=== PATIENT | female | born 1990 | race Two or more races ===

== ENCOUNTER 2017-08-03 14:19 | Emergency (ER) | payer SELFPAY ==
--- NOTE | 2017-08-03 15:18 | EDM.PDOC ---
ED HPI GENERAL MEDICAL PROBLEM - General Chief Complaint: Back Pain or Injury Stated Complaint: BACK PAIN() Time Seen by Provider: 08/03/17 15:00 Source of Information: Reports: Patient History Limitations: Reports: No Limitations - History of Present Illness INITIAL COMMENTS - FREE TEXT/NARRATIVE: HISTORY AND PHYSICAL: History of present illness: Patient is a 26-year-old female who presents to the emergency room today with complaints of low back pain. She states she has not had a menstrual period approximately 3 months and believe she is 3 months . She denies any recent injury or trauma or falls. This back pain stays above the posterior iliac crest and does not radiate down either glutes or to the front of the abdomen. Patient has not received any care or primary health care as of recent. She does complain of nausea but states this is related to symptoms. Eating and drinking appropriately. Her father is at the bedside to translate, they declined Chastity services at this time. Denies any vaginal bleeding, cramping, discharge or dysuria. Denies any change in her urinary or bowel habits.Denies any abdominal pain, vomiting or diarrhea. Denies any fever, chills, chest pain or shortness of breath. Patient is fully ambulatory and has full range of motion without any pain or difficulty. She does not take any prescribed or [id number] medications. Denies any drug or alcohol abuse. 1 para 0- vaginal delivery without complications Review of systems: As per history of present illness and below otherwise all systems reviewed and negative. Past medical history: As per history of present illness and as reviewed below otherwise noncontributory. Surgical history: As per history of present illness and as reviewed below otherwise noncontributory. Social history: No reported history of drug or alcohol abuse. Family history: As per history of present illness and as reviewed below otherwise noncontributory. Physical exam: Gen.: Developed and well-nourished 26-year-old female. Alert and oriented. Appears nontoxic and in no acute distress. HEENT: Atraumatic, normocephalic, pupils reactive, negative for conjunctival pallor or scleral icterus, mucous membranes moist, throat clear, neck supple, nontender, trachea midline. Lungs: Clear to auscultation, breath sounds equal bilaterally, chest nontender. Heart: S1S2, regular ate and rhythm without any overt murmurs Abdomen: Soft, nondistended, nontender. Negative for masses or hepatosplenomegaly. Negative for costovertebral tenderness. Pelvis: Stable nontender. Genitourinary: Deferred. Rectal: Deferred. Extremities: Atraumatic, negative for cords or calf pain. Neurovascular unremarkable. Neuro: Awake, alert, oriented. Cranial nerves II through XII unremarkable. Cerebellum unremarkable. Motor and sensory unremarkable throughout. Exam nonfocal. Diagnostics: CBC, BMP, UA, quantitative hCG Therapeutics: [] Impression: Second trimester Back pain and Plan: 1. Please start taking a vitamin once daily. 2. Establish care with an [facility] for continued care. The phone number has been provided for you. 3. Tylenol is safe to take while . You may take this for your back pain. Apply gentle heat to the area. 4. Return to the ED as needed and as discussed. Definitive disposition and diagnosis as appropriate pending reevaluation and review of above. Duration: Week(s): Location: Reports: Back Bilateral Lower Back Pain Score (Numeric/FACES): 5 - Related Data Allergies Allergy/AdvReac Type Severity Reaction Status Date / Time No Known Allergies Allergy Verified 08/03/17 14:51 Home Meds: Home Meds . [No Known Home Meds] 08/03/17 [History] ED ROS GENERAL - Review of Systems Review Of Systems: ROS reveals no pertinent complaints other than HPI. ED EXAM,LOWER BACK PAIN/INJURY - Physical Exam Exam: See Below (See dictation) Course - Vital Signs Last Recorded V/S: Last Vital Signs Temp 98.5 F 08/03/17 14:51 Pulse 110 H 08/03/17 14:51 Resp 16 08/03/17 14:51 BP 124/82 08/03/17 14:51 Pulse Ox 100 08/03/17 14:51 - Orders/Labs/Meds Labs: Laboratory Tests 08/03/17 08/03/17 08/03/17 Range/Units 15:11 15:19 15:19 WBC 9.92 (4.0-11.0) K/uL RBC 4.00 L (4.30-5.90) M/uL Hgb 12.7 (12.0-16.0) g/dL Hct 36.9 (36.0-46.0) % MCV 92.3 (80.0-98.0) fL MCH 31.8 (27.0-32.0) pg MCHC 34.4 (31.0-37.0) g/dL RDW Std Deviation 44.0 (28.0-62.0) fl RDW Coeff of Omkar 13 (11.0-15.0) % Plt Count 329 (150-400) K/uL MPV 10.20 (7.40-12.00) fL Add Manual Diff YES Neutrophils % (Manual) 54 (48.0-80.0) % Band Neutrophils % 2 % Lymphocytes % (Manual) 33 (16.0-40.0) % Monocytes % (Manual) 10 (0.0-15.0) % Eosinophils % (Manual) 1 (0.0-7.0) % Nucleated RBC % 0.0 /100WBC Absolute Seg Neuts 5.4 (1.4-5.7) Band Neutrophils # 0.2 Lymphocytes # (Manual) 3.3 H (0.6-2.4) Monocytes # (Manual) 1.0 H (0.0-0.8) Eosinophils # (Manual) 0.1 (0.0-0.7) Nucleated RBCs # 0 K/uL Sodium 139 (136-146) mmol/L Potassium 3.7 (3.5-5.1) mmol/L Chloride 108 (98-110) mmol/L Carbon Dioxide 21 (21-31) mmol/L BUN 7 (6.0-23.0) mg/dL Creatinine 0.6 (0.6-1.5) mg/dL Est Cr Clr Drug Dosing 101.34 mL/min Estimated GFR (MDRD) > 60.0 ml/min Glucose 73 (60-110) mg/dL Calcium 9.2 (8.8-10.8) mg/dL HCG, Quant 30909.1 mIU/mL Urine Color YELLOW Urine Appearance CLEAR Urine pH 7.5 (5.0-8.0) Ur Specific [place] 1.015 (1.001-1.035) Urine Protein NEGATIVE (NEGATIVE) mg/dL Urine Glucose (UA) NEGATIVE (NEGATIVE) mg/dL Urine Ketones NEGATIVE (NEGATIVE) mg/dL Urine Occult Blood NEGATIVE (NEGATIVE) Urine Nitrite NEGATIVE (NEGATIVE) Urine Bilirubin NEGATIVE (NEGATIVE) Urine Urobilinogen 0.2 (<2.0) EU/dL Ur Leukocyte Esterase TRACE (NEGATIVE) Urine RBC 0-1 (0-2/HPF) Urine WBC 0-2 (0-5/HPF) Ur Epithelial Cells FEW (NONE-FEW) Urine Bacteria FEW (NEGATIVE) Departure - Departure Time of Disposition: 16:43 Disposition: Home, Self-Care 01 Clinical Impression: Second trimester , Back pain affecting in second trimester - Discharge Information Referrals: PCP,None [Primary Care Provider] - Forms: ED Department Discharge Additional Instructions: My general discharge The following information is given to patients seen in the emergency department who are being discharged to home. This information is to outline your options for follow-up care. We provide all patients seen in our emergency department with a follow-up referral. The need for follow-up, as well as the timing and circumstances, are variable depending upon the specifics of your emergency department visit. If you don't have a primary care physician on staff, we will provide you with a referral. We always advise you to contact your personal physician following an emergency department visit to inform them of the circumstance of the visit and for follow-up with them and/or the need for any referrals to a consulting specialist. The emergency department will also refer you to a specialist when appropriate. This referral assures that you have the opportunity for follow-up care with a specialist. All of these measure are taken in an effort to provide you with optimal care, which includes your follow-up. Under all circumstances we always encourage you to contact your private physician who remains a resource for coordinating your care. When calling for follow-up care, please make the office aware that this follow-up is from your recent emergency room visit. If for any reason you are refused follow-up, please contact the [facility] Emergency Department at and asked to speak to the emergency department charge nurse. [facility] [address] [place] [address] [facility]: [facility] [place] [address] [place] [address] 1. Please start taking a multivitamin daily. 2. Tylenol is the only medication that is safe with . You may take this for your back pain. Gentle heat and warm baths may also be beneficial. 3. Please establish care with an [facility] for a full examination. You'll need to establish care for future OB appointments to ensure that your baby is developing and growing appropriately. 4. Follow-up with your primary care doctor or [facility] in the next 1-2 days. Return to the ED as needed and as discussed.
[2017-08-03 15:59] LABS: CHLORIDE,CL 108 mmol/L (98-110); SODIUM,NA 139 mmol/L (136-146)
== END 2017-08-03 17:10 | disposition home or self-care (01) ==
LOC: MW.ED 14:19
DX: O26.892 Other specified pregnancy related conditions, second trimester (principal); M54.5 Low back pain; Z3A.12 12 weeks gestation of pregnancy
CPT/HCPCS: 36415; 80048; 81001; 84702; 85025; 99283

== ENCOUNTER 2017-08-18 17:09 | Emergency (ER) | payer SELFPAY ==
--- NOTE | 2017-08-18 18:24 | EDM.PDOC ---
ED HPI GENERAL MEDICAL PROBLEM - General Chief Complaint: Headache Stated Complaint: ABDOMINAL PAIN Time Seen by Provider: 08/18/17 18:22 Source of Information: Reports: Patient History Limitations: Reports: No Limitations - History of Present Illness INITIAL COMMENTS - FREE TEXT/NARRATIVE: History of present illness: [Patient facilitated by the assistance of intraoperative device. Patient is a 26 -year-old female that comes in complaining of abdominal pain. Patient indicates use 3 months and her abdomen has been having cramping gotten progressively worse over the last 3 days she might be evaluated.] Review of systems: As per history of present illness and below otherwise all systems reviewed and negative. Past medical history: As per history of present illness and as reviewed below otherwise noncontributory. Surgical history: As per history of present illness and as reviewed below otherwise noncontributory. Social history: No reported history of drug or alcohol abuse. Family history: As per history of present illness and as reviewed below otherwise noncontributory. Physical exam: HEENT: Atraumatic, normocephalic, pupils reactive, negative for conjunctival pallor or scleral icterus, mucous membranes moist, throat clear, neck supple, nontender, trachea midline. Lungs: Clear to auscultation, breath sounds equal bilaterally, chest nontender. Heart: S1S2, regular, negative for clicks, rubs, or JVD. Abdomen: Soft, nondistended, nontender. Negative for masses or hepatosplenomegaly. Negative for costovertebral tenderness. Pelvis: Stable nontender. Genitourinary: Deferred. Rectal: Deferred. Extremities: Atraumatic, negative for cords or calf pain. Neurovascular unremarkable. Neuro: Awake, alert, oriented. Cranial nerves II through XII unremarkable. Cerebellum unremarkable. Motor and sensory unremarkable throughout. Exam nonfocal. Interuterine of approximately 18 weeks 5 days without signs of bleeding or complications. Diagnostics: [Rh, UA, serum quantitative, transvaginal ultrasound] Therapeutics: [] Impression: [#1 live interuterine ] Plan: [Follow-up with an NEWS ANALYST] Definitive disposition and diagnosis as appropriate pending reevaluation and review of above. Abdomen Pain Score (Numeric/FACES): 5 - Related Data Allergies Allergy/AdvReac Type Severity Reaction Status Date / Time No Known Allergies Allergy Verified 08/18/17 17:26 Home Meds: Home Meds . 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: Social & Family History - Family History Family Medical History: Noncontributory - Tobacco Use Smoking Status *Q: Never Smoker Second Hand Smoke Exposure: No - Caffeine Use Caffeine Use: Reports: None - Recreational Drug Use Recreational Drug Use: No ED ROS GENERAL - Review of Systems Review Of Systems: See Below (See history of present illness) ED EXAM, GENERAL - Physical Exam Exam: See Below (See history of present illness) Course - Vital Signs Last Recorded V/S: Last Vital Signs Temp 37.0 C 08/18/17 17:27 Pulse 83 08/18/17 17:27 Resp 14 08/18/17 17:27 BP 119/70 08/18/17 17:27 Pulse Ox 99 08/18/17 17:27 - Orders/Labs/Meds Orders: Active Orders 24 hr Category Date Time Status OB 2 Or 3 Tri Sgl 1st Gest [US] Stat Exams 08/18/17 18:14 Taken CULTURE URINE [] Stat Lab 08/18/17 18:35 Received Labs: Laboratory Tests 08/18/17 08/18/17 08/18/17 Range/Units 18:14 18:14 18:28 WBC 9.51 (4.0-11.0) K/uL RBC 3.87 L (4.30-5.90) M/uL Hgb 12.4 (12.0-16.0) g/dL Hct 35.7 L (36.0-46.0) % MCV 92.2 (80.0-98.0) fL MCH 32.0 (27.0-32.0) pg MCHC 34.7 (31.0-37.0) g/dL RDW Std Deviation 44.3 (28.0-62.0) fl RDW Coeff of Omkar 13 (11.0-15.0) % Plt Count 275 (150-400) K/uL MPV 10.30 (7.40-12.00) fL Neut % (Auto) 64.1 (48.0-80.0) % Lymph % (Auto) 28.1 (16.0-40.0) % [place] % (Auto) 6.6 (0.0-15.0) % Eos % (Auto) 1.1 (0.0-7.0) % Baso % (Auto) 0.1 (0.0-1.5) % Neut # (Auto) 6.1 H (1.4-5.7) K/uL Lymph # (Auto) 2.7 H (0.6-2.4) K/uL [place] # (Auto) 0.6 (0.0-0.8) K/uL Eos # (Auto) 0.1 (0.0-0.7) K/uL Baso # (Auto) 0.0 (0.0-0.1) K/uL Nucleated RBC % 0.0 /100WBC Nucleated RBCs # 0 K/uL HCG, Quant 91227.1 mIU/mL Urine Color Urine Appearance Urine pH (5.0-8.0) Ur Specific [place] (1.001-1.035) Urine Protein (NEGATIVE) mg/dL Urine Glucose (UA) (NEGATIVE) mg/dL Urine Ketones (NEGATIVE) mg/dL Urine Occult Blood (NEGATIVE) Urine Nitrite (NEGATIVE) Urine Bilirubin (NEGATIVE) Urine Urobilinogen (<2.0) EU/dL Ur Leukocyte Esterase (NEGATIVE) Urine RBC (0-2/HPF) Urine WBC (0-5/HPF) Ur Epithelial Cells (NONE-FEW) Urine Bacteria (NEGATIVE) Blood Type O POSITIVE 08/18/17 Range/Units 18:35 WBC (4.0-11.0) K/uL RBC (4.30-5.90) M/uL Hgb (12.0-16.0) g/dL Hct (36.0-46.0) % MCV (80.0-98.0) fL MCH (27.0-32.0) pg MCHC (31.0-37.0) g/dL RDW Std Deviation (28.0-62.0) fl RDW Coeff of Omkar (11.0-15.0) % Plt Count (150-400) K/uL MPV (7.40-12.00) fL Neut % (Auto) (48.0-80.0) % Lymph % (Auto) (16.0-40.0) % [place] % (Auto) (0.0-15.0) % Eos % (Auto) (0.0-7.0) % Baso % (Auto) (0.0-1.5) % Neut # (Auto) (1.4-5.7) K/uL Lymph # (Auto) (0.6-2.4) K/uL [place] # (Auto) (0.0-0.8) K/uL Eos # (Auto) (0.0-0.7) K/uL Baso # (Auto) (0.0-0.1) K/uL Nucleated RBC % /100WBC Nucleated RBCs # K/uL HCG, Quant mIU/mL Urine Color YELLOW Urine Appearance CLEAR Urine pH 7.0 (5.0-8.0) Ur Specific [place] 1.010 (1.001-1.035) Urine Protein NEGATIVE (NEGATIVE) mg/dL Urine Glucose (UA) NEGATIVE (NEGATIVE) mg/dL Urine Ketones NEGATIVE (NEGATIVE) mg/dL Urine Occult Blood NEGATIVE (NEGATIVE) Urine Nitrite NEGATIVE (NEGATIVE) Urine Bilirubin NEGATIVE (NEGATIVE) Urine Urobilinogen 0.2 (<2.0) EU/dL Ur Leukocyte Esterase NEGATIVE (NEGATIVE) Urine RBC 0-1 (0-2/HPF) Urine WBC 0-1 (0-5/HPF) Ur Epithelial Cells OCCASIONAL (NONE-FEW) Urine Bacteria FEW (NEGATIVE) Blood Type Departure - Departure Time of Disposition: 20:04 Disposition: Home, Self-Care 01 Condition: Good Clinical Impression: Second trimester - Discharge Information Referrals: PCP,None [Primary Care Provider] - Forms: ED Department Discharge Additional Instructions: The following information is given to patients seen in the emergency department who are being discharged to home. This information is to outline your options for follow-up care. We provide all patients seen in our emergency department with a follow-up referral. The need for follow-up, as well as the timing and circumstances, are variable depending upon the specifics of your emergency department visit. If you don't have a primary care physician on staff, we will provide you with a referral. We always advise you to contact your personal physician following an emergency department visit to inform them of the circumstance of the visit and for follow-up with them and/or the need for any referrals to a consulting specialist. The emergency department will also refer you to a specialist when appropriate. This referral assures that you have the opportunity for follow-up care with a specialist. All of these measure are taken in an effort to provide you with optimal care, which includes your follow-up. Under all circumstances we always encourage you to contact your private physician who remains a resource for coordinating your care. When calling for follow-up care, please make the office aware that this follow-up is from your recent emergency room visit. If for any reason you are refused follow-up, please contact the [facility] Emergency Department at and asked to speak to the emergency department charge nurse. You are approximately 19 weeks please follow-up with an NEWS ANALYST return to ER in case of any emergencies or concerns as discussed - My Orders Last 24 Hours: My Active Orders 08/18/17 18:14 OB 2 Or 3 Tri Sgl 1st Gest [US] Stat 08/18/17 18:35 CULTURE URINE [RM] Stat - Assessment/Plan Last 24 Hours: My Active Orders 08/18/17 18:14 OB 2 Or 3 Tri Sgl 1st Gest [US] Stat 08/18/17 18:35 CULTURE URINE [RM] Stat
--- NOTE | 2017-08-21 18:41 | US ---
EXAM DATE: 08/18/17 PATIENT'S AGE: 26 Patient: JOSIAH VALENCIA Facility: [place], [place] Site . Site : 1990 Study: US OB Pelvis [id number]/18/2017 7:53:34 PM Ordering Physician: Doctor Mcelroy Final Report: HISTORY: Right-sided abdominal pain in . Technique: Obstetric ultrasound using transabdominal technique. Comparison: None. Findings: Study was performed for management in the emergency setting. A dedicated anatomic screening exam was not performed. Single live intrauterine gestation. cardiac activity is present with heart rate 149 beats per minute. Transverse lie with the occiput to the left. Placenta is anterior. No placenta previa or abruption. Amniotic fluid volume appears within normal limits. Following biometric measurements were obtained: Head circumference: 15.8 cm, 18 weeks 5 days. Abdominal circumference: 12.8 cm, 18 weeks 3 days. Femur length: 2.8 cm, 18 weeks 5 days. Composite estimated gestational age by ultrasound is 18 weeks 5 days. Impression : 1. Single live intrauterine gestation with estimated gestational age 18 weeks 5 days. 2. Recommend followup ultrasound for dedicated anatomic survey. Dictated by Kelby Ceja MD @ Aug 18 2017 8:23PM (Electronic Signature) Report Signed by Proxy. TYRESE
== END 2017-08-18 20:57 | disposition home or self-care (01) ==
LOC: MW.ED 17:09
DX: O99.89 Other specified diseases and conditions complicating pregnancy, childbirth and the puerperium (principal); R10.9 Unspecified abdominal pain; Z3A.18 18 weeks gestation of pregnancy
CPT/HCPCS: 36415; 76805; 76805-26; 81001; 84702; 85025; 86900; 86901; 87086; 99283; 99284-25

== ENCOUNTER 2017-11-19 15:35 | Emergency (ER) | payer OTHER, SELFPAY ==
--- NOTE | 2017-11-19 16:32 | EDM.PDOC ---
ED HPI GENERAL MEDICAL PROBLEM - General Chief Complaint: Headache Stated Complaint: HEADACHE,AND SORETHROAT() Time Seen by Provider: 11/19/17 16:05 Source of Information: Reports: Patient History Limitations: Reports: No Limitations - History of Present Illness INITIAL COMMENTS - FREE TEXT/NARRATIVE: History of present illness: []Patient is and has not had any care and comes in complaining of a sore throat and headache. Review of systems: As per history of present illness and below otherwise all systems reviewed and negative. Past medical history: As per history of present illness and as reviewed below otherwise noncontributory. Surgical history: As per history of present illness and as reviewed below otherwise noncontributory. Social history: No reported history of drug or alcohol abuse. Family history: As per history of present illness and as reviewed below otherwise noncontributory. Physical exam: General: Well developed, well nourished in NAD HEENT: Atraumatic, normocephalic, pupils reactive, negative for conjunctival pallor or scleral icterus, mucous membranes moist, throat erythematous no exudate, neck supple, nontender, trachea midline. Lungs: Clear to auscultation, breath sounds equal bilaterally, chest nontender. Heart: S1S2, regular, negative for clicks, rubs, or JVD. Abdomen: Soft, heart tones 154-160 nontender. Negative for masses or hepatosplenomegaly. Negative for costovertebral tenderness. Pelvis: Stable nontender. Genitourinary: Deferred. Rectal: Deferred. Extremities: Atraumatic, negative for cords or calf pain. Neurovascular unremarkable. Neuro: Awake, alert, oriented. Cranial nerves II through XII unremarkable. Cerebellum unremarkable. Motor and sensory unremarkable throughout. Exam nonfocal. Diagnostics: []Rapid strep is negative Therapeutics: []Tylenol given Impression: []Viral pharyngitis, Plan: []Follow-up with women's health clinic for throat pain Definitive disposition and diagnosis as appropriate pending reevaluation and review of above. 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: Social & Family History - Family History Family Medical History: Noncontributory - Tobacco Use Smoking Status *Q: Never Smoker Second Hand Smoke Exposure: No - Caffeine Use Caffeine Use: Reports: None - Recreational Drug Use Recreational Drug Use: No ED ROS GENERAL - Review of Systems Review Of Systems: See Below (See history of present illness) ED EXAM - Physical Exam Exam: See Below (See history of present illness) Course - Vital Signs Last Recorded V/S: Last Vital Signs Temp 97.7 F 11/19/17 15:54 Pulse 129 H 11/19/17 15:54 Resp 16 11/19/17 15:54 BP 120/75 11/19/17 15:54 Pulse Ox 98 11/19/17 15:54 - Orders/Labs/Meds Orders: Active Orders 24 hr Category Date Time Status CULTURE STREP A CONFIRMATION [RM] Stat Lab 11/19/17 16:40 Results STREP SCRN A RAPID W CULT CONF [RM] Stat Lab 11/19/17 16:40 Ordered UA W/MICROSCOPIC [URIN] Stat Lab 11/19/17 17:35 Ordered Labs: Laboratory Tests 11/19/17 Range/Units 17:35 Urine Color YELLOW Urine Appearance CLEAR Urine pH 6.0 (5.0-8.0) Ur Specific [place] <= 1.005 (1.001-1.035) Urine Protein NEGATIVE (NEGATIVE) mg/dL Urine Glucose (UA) NEGATIVE (NEGATIVE) mg/dL Urine Ketones TRACE H (NEGATIVE) mg/dL Urine Occult Blood NEGATIVE (NEGATIVE) Urine Nitrite NEGATIVE (NEGATIVE) Urine Bilirubin NEGATIVE (NEGATIVE) Urine Urobilinogen 0.2 (<2.0) EU/dL Ur Leukocyte Esterase NEGATIVE (NEGATIVE) Urine RBC 0-1 (0-2/HPF) Urine WBC 0-1 (0-5/HPF) Ur Epithelial Cells FEW (NONE-FEW) Urine Bacteria RARE (NEGATIVE) Meds: Medications Discontinued Medications Generic Name Dose Route Start Last Admin Trade Name Freq PRN Reason Stop Dose Admin Acetaminophen 650 mg 11/19/17 16:39 11/19/17 16:47 Tylenol PO 11/19/17 16:40 650 mg NOW ONE Administration Departure - Departure Time of Disposition: 18:18 Disposition: Home, Self-Care 01 Condition: Good Clinical Impression: Viral pharyngitis - Discharge Information Referrals: [facility] [Outside] PCP,None [Primary Care Provider] - [facility] [Outside] - 1 Week Forms: ED Department Discharge Additional Instructions: The following information is given to patients seen in the emergency department who are being discharged to home. This information is to outline your options for follow-up care. We provide all patients seen in our emergency department with a follow-up referral. The need for follow-up, as well as the timing and circumstances, are variable depending upon the specifics of your emergency department visit. If you don't have a primary care physician on staff, we will provide you with a referral. We always advise you to contact your personal physician following an emergency department visit to inform them of the circumstance of the visit and for follow-up with them and/or the need for any referrals to a consulting specialist. The emergency department will also refer you to a specialist when appropriate. This referral assures that you have the opportunity for follow-up care with a specialist. All of these measure are taken in an effort to provide you with optimal care, which includes your follow-up. Under all circumstances we always encourage you to contact your private physician who remains a resource for coordinating your care. When calling for follow-up care, please make the office aware that this follow-up is from your recent emergency room visit. If for any reason you are refused follow-up, please contact the [facility] Emergency Department at and asked to speak to the emergency department charge nurse. Tylenol for pain follow-up with women's health clinic [facility] Primary Care - Women's Health [address] [place] [id number] - My Orders Last 24 Hours: My Active Orders 11/19/17 16:40 CULTURE STREP A CONFIRMATION [RM] Stat STREP SCRN A RAPID W CULT CONF [RM] Stat 11/19/17 17:35 UA W/MICROSCOPIC [URIN] Stat - Assessment/Plan Last 24 Hours: My Active Orders 11/19/17 16:40 CULTURE STREP A CONFIRMATION [RM] Stat STREP SCRN A RAPID W CULT CONF [RM] Stat 11/19/17 17:35 UA W/MICROSCOPIC [URIN] Stat
[2017-11-19] MEDS ORDERED: Acetaminophen 325 MG Tab PO ONE (16:39)
== END 2017-11-19 18:48 | disposition home or self-care (01) ==
LOC: MW.ED 15:35
DX: O99.513 Diseases of the respiratory system complicating pregnancy, third trimester (principal); J02.8 Acute pharyngitis due to other specified organisms; B97.89 Other viral agents as the cause of diseases classified elsewhere
CPT/HCPCS: 81001; 87081; 87880; 99283; A9270

== ENCOUNTER 2017-12-29 04:07 | Inpatient (IN) | payer SELFPAY ==
[2017-12-29] MEDS ORDERED: Sodium Chloride 0.9% 2.5 ML Syringe FLUSH PRN (04:19)
[2017-12-29] MEDS ORDERED: Butorphanol 1 MG/ML SDV IVPUSH PRN (04:19)
[2017-12-29] MEDS ORDERED: Methylergonovine 0.2 MG/1 ML Amp IM PRN (04:19)
[2017-12-29] MEDS ORDERED: Sodium Chloride 0.9% 10 ML Syringe FLUSH PRN (04:19)
[2017-12-29] MEDS ORDERED: Lidocaine 1% 50 ML MDV INJECT PRN (04:19)
[2017-12-29] MEDS ORDERED: Nalbuphine 10 MG/1 ML Vial IVPUSH PRN (04:19)
[2017-12-29] MEDS ORDERED: Water For Irrigation,Sterile 1,000 ML Container IRR PRN (04:19)
[2017-12-29] MEDS ORDERED: Misoprostol 200 MCG Tab PO PRN (04:19)
[2017-12-29] MEDS ORDERED: Carboprost Tromethamine 250 MCG/1 ML Amp IM PRN (04:19)
[2017-12-29] MEDS ORDERED: Tranexamic Acid 1,000 MG in Sodium Chloride 0.9% 100 ML IV PRN (04:19)
[2017-12-29] MEDS ORDERED: Oxytocin/0.9 % Sodium Chloride 30 UNIT/500 ML BAG ONE (04:26)
[2017-12-29] MEDS ORDERED: Lidocaine 1% 50 ML MDV ONE (04:27)
[2017-12-29] MEDS ORDERED: Lactated Ringers 1,000 ML IV SCH (04:30)
[2017-12-29] MEDS ORDERED: Oxytocin/0.9 % Sodium Chloride 30 UNIT/500 ML BAG IV SCH (04:30)
[2017-12-29] MEDS ORDERED: Witch Hazel Medicated Pads 40/Jar TOP PRN (05:08)
[2017-12-29] MEDS ORDERED: oxyCODONE 5 MG Tab PO PRN (05:08)
[2017-12-29] MEDS ORDERED: Lanolin 100% Cream 7 GM Tube TOP PRN (05:08)
[2017-12-29] MEDS ORDERED: Acetaminophen 500 MG Tab PO PRN ×2 (05:08)
[2017-12-29] MEDS ORDERED: Bisacodyl 10 MG Supp RECTAL PRN (05:08)
[2017-12-29] MEDS ORDERED: Docusate Sodium 100 MG Cap PO PRN (05:08)
[2017-12-29] MEDS ORDERED: Benzocaine/Menthol 20%-0.5% Spray 78 GM Cannister TOP PRN (05:08)
[2017-12-29] MEDS ORDERED: Ibuprofen 400 MG Tab PO PRN (05:08)
--- NOTE | 2017-12-29 07:32 | OR ---
SURGEON: Bertha Calderon MD DATE OF PROCEDURE: 12/29/2017 PREOPERATIVE DIAGNOSES: 1. Intrauterine at 37 weeks and 5 days. 2. Spontaneous labor. POSTOPERATIVE DIAGNOSES: 1. Intrauterine at 37 weeks and 5 days. 2. Spontaneous labor. 3. Delivered. PROCEDURE PERFORMED: Spontaneous vaginal delivery. ANESTHESIA: None. ESTIMATED BLOOD LOSS: 100 mL. COMPLICATIONS: None. DISPOSITION: Mother and baby stable in Labor and Delivery room. FINDINGS: Female , weight 3130 g, score 9 and 9 at 1 and 5 minutes respectively. Grossly normal placenta with three-vessel cord. Intact perineum. HISTORY: The patient is a 27-year-old G3, P2-0-0-2, who is a patient of [facility]. [facility] is taking care of patients from the clinic this weekend since Dr. Ochoa, the provider is away. She is 37 weeks and 5 days dated by 18 weeks and 5 days ultrasound, presented early hours of the morning in active spontaneous labor with complaints of regular contractions that started about midnight and had spontaneous rupture of membranes, approximately at about 3:00 a.m. slightly blood-tinged. Reported movement. GBS status negative. Her care was complicated by insufficient care. She had a total of 3 visits, and on her first visit on the 03 of December, she tested positive for Chlamydia and was treated. Test of cure is still pending. On admission, she was found to be grossly ruptured, 9 to 10 cm dilated and with a category 1 heart tracing. I arrived approximately 6 minutes after I was notified of her admission, reexamined her, and confirmed that she was fully dilated at +3 station, and she was set up for delivery in modified dorsal lithotomy position. DESCRIPTION OF PROCEDURE: She had a spontaneous vaginal delivery of a live female infant in direct occipital anterior position, no nuchal cord, clear amniotic fluid at delivery. Anterior and posterior shoulders and the rest of baby were delivered without difficulty. Baby was vigorous and cried spontaneously at . The baby was delivered onto the maternal abdomen with the nursery nurse in attendance, stimulating and drying the infant. Delayed cord clamping was performed, and the cord was subsequently cut by the father of the baby. With delivery of the , oxytocin infusion titration was commenced for active management of third stage of labor. Cord blood and gas samples were obtained. Placenta was delivered by controlled cord traction appeared to be complete and intact. Examination of the perineum revealed no lacerations. Vigorous uterine massage was performed. The uterus was found to be well contracted below the umbilicus. The patient tolerated the procedure well. Sponge, instrument, and needle counts were correct at the end of the delivery. ADUMVIV / MODL /[id number] MTDD
[2017-12-29] MEDS: Ibuprofen 800 MG Tab PO PRN ×2 (08:02→14:57)
[2017-12-30] MEDS: Ibuprofen 800 MG Tab PO PRN (03:44)
[2017-12-30] MEDS ORDERED: Measles, Mumps & Rubella Vaccine 0.5 ML SDV SUBCUT ONE (09:00)
--- NOTE | 2017-12-30 13:19 | PCM.PNPP ---
- General Info Date of Service: 12/30/17 Functional Status: Reports: Pain Controlled, Tolerating Diet, Ambulating, Urinating - Review of Systems General: Denies: Fever, Weakness, Malaise HEENT: Denies: Headaches Pulmonary: Denies: Shortness of Breath, Pleuritic Chest Pain Cardiovascular: Denies: Chest Pain, Palpitations Gastrointestinal: Denies: Abdominal Pain Genitourinary: Denies: Dysuria, Incontinence, Retention - General Info Date of Service: 12/30/17 - Patient Data Vital Signs - Most Recent: Last Vital Signs Temp 36.7 C 12/30/17 08:17 Pulse 78 12/30/17 08:17 Resp 20 12/30/17 08:17 BP 109/53 L 12/30/17 08:17 Pulse Ox 97 12/30/17 08:17 Weight - Most Recent: 115 lb Lab Results - Last 24 Hours: Laboratory Results - last 24 hr 12/30/17 Range/Units 05:36 Hgb 12.6 (12.0-16.0) g/dL Hct 37.6 (36.0-46.0) % Med Orders - Current: Current Medications Acetaminophen (Tylenol Extra Strength) 500 mg PO Q4H PRN PRN Reason: Pain Acetaminophen (Tylenol Extra Strength) 1,000 mg PO Q4H PRN PRN Reason: Pain Benzocaine/Menthol (Dermoplast Pain Relief 20%-0.5% [place]) 78 gm TOP ASDIRECTED PRN PRN Reason: Perineal Comfort Measure Bisacodyl (Dulcolax) 10 mg RECTAL .ONCE PRN PRN Reason: Constipation Docusate Sodium (Colace) 100 mg PO BID PRN PRN Reason: Constipation Emollient Ointment (Lansinoh Hpa) 0 gm TOP ASDIRECTED PRN PRN Reason: Sore Nipples Ibuprofen (Motrin) 400 mg PO Q4H PRN PRN Reason: Pain Ibuprofen (Motrin) 800 mg PO Q6H PRN PRN Reason: Pain Last Admin: 12/30/17 03:44 Dose: 800 mg Oxycodone HCl (Oxycodone) 5 mg PO Q2H PRN PRN Reason: Pain Witch Sadie (Tucks) 1 pad TOP ASDIRECTED PRN PRN Reason: comfort care Discontinued Medications Butorphanol Tartrate (Stadol) 1 mg IVPUSH Q1H PRN PRN Reason: Pain Carboprost Tromethamine (Hemabate Ds) 250 mcg IM ASDIRECTED PRN PRN Reason: Post Hemorrhage Lactated Ringer's (Ringers, Lactated) 1,000 mls @ 150 mls/hr IV ASDIRECTED HANNAH Oxytocin/Sodium Chloride (Oxytocin 30 Unit/500 Ml-Ns) 30 unit in 500 mls @ 999 mls/hr IV ASDIRECTED HANNAH Last Admin: 12/29/17 04:37 Dose: 999 mls/hr Tranexamic Acid 1,000 mg/ (Sodium Chloride) 110 mls @ 660 mls/hr IV ONETIME PRN PRN Reason: Bleeding Oxytocin/Sodium Chloride (Oxytocin 30 Unit/500 Ml-Ns) Confirm Administered Dose 30 unit in 500 mls @ as directed .ROUTE [employer] ONE Stop: 12/29/17 04:27 Lidocaine HCl (Xylocaine 1%) 50 ml INJECT ASDIRECTED PRN PRN Reason: Laceration repair Lidocaine HCl (Xylocaine 1%) Confirm Administered Dose 50 ml .ROUTE [employer] ONE Stop: 12/29/17 04:28 Measles/Mumps/Rubella Vaccine Live (M-M-R Ii Vaccine) 0.5 ml SUBCUT .ONCE ONE Stop: 12/30/17 09:01 Methylergonovine Maleate (Methergine) 0.2 mg IM ASDIRECTED PRN PRN Reason: Post Hemorrhage Misoprostol (Cytotec) 200 mcg PO ASDIRECTED PRN PRN Reason: Post Hemorrhage Nalbuphine HCl (Nubain) 10 mg IVPUSH Q1H PRN PRN Reason: Pain (severe 7-10) Sodium Chloride (Saline Flush) 10 ml FLUSH ASDIRECTED PRN PRN Reason: Keep Vein Open Sodium Chloride (Saline Flush) 2.5 ml FLUSH ASDIRECTED PRN PRN Reason: Keep Vein Open Sterile Water (Sterile Water For Irrigation) 1,000 ml IRR ASDIRECTED PRN PRN Reason: delivery Last Admin: 12/29/17 05:03 Dose: 1,000 ml - Infant Interaction Disposition, : [place] in Room with Family Infant Feeding: Attempted ; Nursed Fair/Poor Support Person: Significant Other - Recovery Exam Fundal Tone: Firm Fundal Level: At Umbilicus Fundal Placement: Midline Lochia Amount: Scant Lochia Color: Rubra/Red Perineum Description: Intact, Minimal Bruising/Swelling Episiotomy/Laceration: None Bladder Status: Voiding Urinary Elimination: Voided - Exam General: Alert, Oriented Lungs: Clear to Auscultation, Normal Respiratory Effort Cardiovascular: Regular Rate, Regular Rhythm GI/Abdominal Exam: Normal Bowel Sounds, Non-Tender Extremities: Non-Tender, No Pedal Edema Psy/Mental Status: Alert, Normal Affect, Normal Mood - Problem List & Annotations (1) Vaginal delivery SNOMED Code(s): 742883397 Code(s): O80 - ENCOUNTER FOR FULL-TERM UNCOMPLICATED DELIVERY Status: Acute Current Visit: Yes - Problem List Review Problem List Initiated/Reviewed/Updated: Yes - Assessment Assessment:: PPD#1 s/p , stable and afebrile Clinically stable for discharge today - Plan Plan:: Discharge instructions reviewed and printed in [place] Nothing in the vagina for 6 weeks OTC pain meds as needed Bleeding and infection precautions reviewed Follow in the Clinic, [facility] for routine visit in 2-6 weeks
== END 2017-12-30 15:15 | disposition home or self-care (01) | DRG 774 ==
LOC: MW.OBCHECK 04:07 → MW.OB 04:11 → MW.OBCHECK 04:19 → OBSVTOIN 04:37 → MW.OB 11:13
PROVIDERS: ADMIT Obstetrics & Gynecology; ATTEND Obstetrics & Gynecology
PROC: 10E0XZZ Delivery of Products of Conception, External Approach (ICD-10-PCS; principal; 2017-12-29)
DX: O42.02 Full-term premature rupture of membranes, onset of labor within 24 hours of rupture (principal); O98.82 Other maternal infectious and parasitic diseases complicating childbirth; Z3A.37 37 weeks gestation of pregnancy; Z37.0 Single live birth; O09.33 Supervision of pregnancy with insufficient antenatal care, third trimester
CPT/HCPCS: 36415; 82803; 85014; 85018; 85027; 86850; 86900; 86901; 87491; 87591; A9270-GY; J2590

== ENCOUNTER 2022-04-15 07:49 | Inpatient (IN) | payer OTHER ==
[2022-04-15] MEDS ORDERED: Misoprostol 200 MCG Tab PO PRN (09:48)
[2022-04-15] MEDS ORDERED: Sodium Chloride 0.9% 10 ML Syringe FLUSH PRN (09:48)
[2022-04-15] MEDS ORDERED: Methylergonovine 0.2 MG/1 ML Amp IM PRN (09:48)
[2022-04-15] MEDS ORDERED: Carboprost Tromethamine 250 MCG/1 ML Amp IM PRN (09:48)
[2022-04-15] MEDS ORDERED: Butorphanol 1 MG/ML SDV IVPUSH PRN (09:48)
[2022-04-15] MEDS ORDERED: Tranexamic Acid 1,000 MG in Sodium Chloride 0.9% 100 ML IV PRN (09:48)
[2022-04-15] MEDS ORDERED: Lidocaine 1% 50 ML MDV INJECT PRN (09:48)
[2022-04-15] MEDS ORDERED: Water For Irrigation,Sterile 1,000 ML Container IRR PRN (09:48)
[2022-04-15] MEDS ORDERED: Sodium Chloride 0.9% 2.5 ML Syringe FLUSH PRN (09:48)
[2022-04-15] MEDS ORDERED: Sodium Chloride 0.9% 20 ML SDV IV PRN (09:48)
[2022-04-15] MEDS ORDERED: Oxytocin/0.9 % Sodium Chloride 30 UNIT/500 ML BAG IV SCH (10:00)
[2022-04-15] MEDS: Lactated Ringers 1,000 ML IV SCH ×4 (10:16→19:03)
[2022-04-15] MEDS ORDERED: Phenylephrine HCl In 0.9% NaCl 1 MG/10 ML Vial ONE (11:20)
[2022-04-15] MEDS ORDERED: Lidocaine 2% with EPINEPHrine 1:200,000 20 ML SDV ONE (11:20)
[2022-04-15] MEDS ORDERED: Ropivacaine/PF 400 MG/200 ML PCA ONE (11:20)
[2022-04-15] MEDS ORDERED: ePHEDrine 50 MG/ML SDV IVPUSH PRN ×2 (11:29)
[2022-04-15] MEDS ORDERED: Ropivacaine HCl/PF 400 MG in Premix Bag 1 BAG EPIDUR SCH (11:30)
[2022-04-15] MEDS ORDERED: Phenylephrine HCl In 0.9% NaCl 1 MG/10 ML Vial IVPUSH SCH (11:30)
[2022-04-15] MEDS ORDERED: Acetaminophen 500 MG Tab PO ONE (16:19)
[2022-04-15] MEDS ORDERED: Ibuprofen 400 MG Tab PO PRN (20:16)
[2022-04-15] MEDS ORDERED: Witch Hazel Medicated Pads 40/Jar TOP PRN (20:16)
[2022-04-15] MEDS ORDERED: Acetaminophen 500 MG Tab PO PRN ×2 (20:16)
[2022-04-15] MEDS ORDERED: Benzocaine/Menthol 20%-0.5% Spray 78 GM Cannister TOP PRN (20:16)
[2022-04-15] MEDS ORDERED: Bisacodyl 10 MG Supp RECTAL PRN (20:16)
[2022-04-15] MEDS ORDERED: oxyCODONE 5 MG Tab PO PRN (20:16)
[2022-04-15] MEDS ORDERED: Lanolin 100% Cream 7 GM Tube TOP PRN (20:16)
[2022-04-16] MEDS: Ibuprofen 800 MG Tab PO PRN ×2 (06:23→16:33)
[2022-04-16] MEDS: Docusate Sodium 100 MG Cap PO PRN ×2 (09:20→21:24)
== END 2022-04-16 22:24 | disposition home or self-care (01) | DRG 805 ==
LOC: MW.OBCHECK 07:49 → MW.OB 07:51 → MW.OBCHECK 10:45 → OBSVTOIN 20:10 → MW.OB 23:02
PROVIDERS: ADMIT Obstetrics & Gynecology; ATTEND Obstetrics & Gynecology
PROC: 10E0XZZ Delivery of Products of Conception, External Approach (ICD-10-PCS; principal; 2022-04-15)
PROC: 3E0R3BZ Introduction of Anesthetic Agent into Spinal Canal, Percutaneous Approach (ICD-10-PCS; 2022-04-15)
PROC: 00HU33Z Insertion of Infusion Device into Spinal Canal, Percutaneous Approach (ICD-10-PCS; 2022-04-15)
DX: O80 Encounter for full-term uncomplicated delivery (principal); U07.1 COVID-19; Z37.0 Single live birth; O98.52 Other viral diseases complicating childbirth; Z3A.39 39 weeks gestation of pregnancy; Z20.822 Contact with and (suspected) exposure to COVID-19; Z3A.38 38 weeks gestation of pregnancy
CPT/HCPCS: 36415; 51702; 59025; 59409; 59414; 85014; 85018; 85027; 86592; 86850; 86900; 86901; A9270-GY; J0595; J2590; J2795; J7120; U0002